=== PATIENT | male | born 1945 | race Caucasian/White ===

== ENCOUNTER 2024-03-09 06:32 | Emergency (ER) | payer OTHER, SELFPAY ==
[2024-03-09] VITALS (7 sets, daily range): BP systolic 116–145; BP diastolic 69–83
[2024-03-09 07:26] LABS: % Basophils 0.4 % (0-2); % Eosinophils 0.1 % (0-6); % Immature Granulocytes 0.6 % (0-0.5); % Monocytes 7.2 % (1.7-9.3); % Neutrophils 86.7 % (42.2-75.2); Absolute Basophils 0.1 10^3/uL (0-0.2); Absolute Immature Granulocytes 0.1 10^3/uL (0-0.05); Absolute Lymphocytes 0.9 10^3/uL (1.2-3.4); Absolute Monocytes 1.2 10^3/uL (0.1-0.6); Absolute Neutrophils 14.8 10^3/uL (1.4-6.5); Hematocrit 43.5 % (39.0-52.0); Hemoglobin 14.8 g/dL (13.0-18.0); Mean Corpuscular Hgb 27.7 pg (27.0-31.0); Mean Corpuscular Volume 81.3 fL (80.0-94.0); Mean Platelet Volume 11.9 fL (7.4-10.4); Nucleated Red Blood Cells % 0 % (-); Platelet Count 189 10^3/uL (130-400); Red Blood Cell Count 5.35 10^6/uL (4.70-6.10); Red Cell Dist. Width 13.3 % (11.5-14.5)
[2024-03-09 07:27] LABS: INR 1.77; PT 20.4 Sec (11.4-14.6)
[2024-03-09 07:38] LABS: ALT (SGPT) 18 U/L (0-50); AST (SGOT) 25 U/L (17-59); Albumin 4.4 g/dl (3.5-5.0); Alkaline Phosphatase 125 U/L (38-126); Blood Urea Nitrogen 20 mg/dl (9-20); Calcium 9.8 mg/dl (8.4-10.2); Carbon Dioxide 23 mmol/L (22-30); Chloride 103 mmol/L (98-107); Creatine Phosphokinase 105 U/L (55-170); Glucose 138 mg/dl (70-99); Potassium 3.7 mmol/L (3.5-5.1); Sodium 141 mmol/L (135-145); Total Bilirubin 2.2 mg/dl (0.2-1.3); eGFR > 60.00
--- NOTE | 2024-03-09 07:57 | ED.GENMED ---
History of Present Illness
General
Chief Complaint: Abdominal Symptoms
Source: patient
Exam Limitations: none
Time Seen by Provider: 03/09/24 07:02
Nursing documentation reviewed up to this point in time: agreed with
History of Present Illness
History of Present Illness:
78-year-old male with Fran history of hypertension, COPD anxiety depression presenting to the emergency department today after an episode this morning where he had 2 episodes of diarrhea a few hours prior to arrival department. He felt very weak
and slowly lowered himself to the ground. He had difficulty standing up. He was unable to stand up at home called EMS and was brought to the ER. Denies chest pain short numbness weakness nausea vomiting. Otherwise has no specific complaints at
this time.
Past History
Past History
ED Past Medical History: COPD, CVA, GERD, HTN, Psychiatric and Other (Diverticulitis, BPH, chronic diarrhea w/ incont)
ED Past Surgical History: Bowel resection, Cholecystectomy, Urological (Prostate) and Other (Hernia repair)
Social History
Tobacco: Former smoker
Alcohol: Occasional
Drug: None
Personal:
Living: with family
Family History
Family History: Negative Diabetes, Hypertension, Early CAD, Asthma or Cancer
Review of Systems
Review of Systems
Allergies reviewed?: Yes
All Other Systems: ROS reviewed and negative except as documented in HPI and ROS
Phy Exam
Physical Exam
Physical Exam:
GENERAL: Alert , in no apparent distress
EYE: pupils equal and reactive
NECK: Supple, no significant adenopathy.
ENT: o/p clr, mmm.
CARDIAC: Regular rate and rhythm .
LUNGS: Clear breath sounds bilaterally, no acute respiratory distress, no wheezes/rales/rhonchi
ABDOMEN: Soft, without focal tenderness, no r/g, no cvat
NEUROLOGICAL: Alert and oriented, no focal neuro deficits
SKIN: Warm and dry, skin intact.
MUSCULOSKELETAL: No edema, well perfused.
PSYCH: Normal and appropriate interaction.
Course
Orders/Labs/Results
Orders:
Orders
03/09/24 06:59
CPK [Creatine Phosphokinase] Urgent
Complete Blood Count/With Diff Urgent
Comprehensive Metabolic Panel Urgent
03/09/24 07:06
INR [Prothrombin Time] Urgent
03/09/24 07:22
EKG [Electrocardiogram (*1)] Urgent
Reason for Study: Fatigue / Weakness
EKG- Treatment ONCE
Urinalysis Reflex To Culture Urgent
03/09/24 07:53
Troponin I Urgent
03/09/24 07:58
0.9% Sodium Chloride 500 ml [Nss] 500 ml IV BOLUS
Abnormal Lab Results
03/09/24 03/09/24
06:59 07:06
WBC 17.0 H 10^3/uL
(4.8-10.8)
MPV 11.9 H fL
(7.4-10.4)
Abs Immat Gran (auto) 0.1 H 10^3/uL
(0-0.05)
Absolute Neuts (auto) 14.8 H 10^3/uL
(1.4-6.5)
Absolute Lymphs (auto) 0.9 L 10^3/uL
(1.2-3.4)
Absolute Monos (auto) 1.2 H 10^3/uL
(0.1-0.6)
Immature Gran % 0.6 H %
(0-0.5)
Neutrophils % 86.7 H %
(42.2-75.2)
Lymphocytes % 5.0 L %
(20.5-51.1)
PT 20.4 H Sec
(11.4-14.6)
Glucose 138 H mg/dl
(70-99)
Total Bilirubin 2.2 H mg/dl
(0.2-1.3)
03/09/24 06:59
03/09/24 06:59
Vital Signs
Initial and Last Documented VS:
Initial Vital Signs
Temp Pulse Resp BP Pulse Ox
97.8 F 112 24 131/75 95
03/09/24 06:49 03/09/24 06:49 03/09/24 06:49 03/09/24 06:49 03/09/24 06:49
Last Documented Vital Signs
Temp Pulse Resp BP Pulse Ox
97.8 F 97 16 116/72 95
03/09/24 06:49 03/09/24 11:00 03/09/24 11:00 03/09/24 11:00 03/09/24 11:00
MDM/Problems Addressed
MDM/Problems Addressed:
78-year-old male presenting to the emergency department today after having 2 episodes of diarrhea early this morning felt very weak when standing up lowered himself to the ground and was unable to stand up for 2 hours and was brought in by EMS
thereafter. Upon arrival mildly tachycardic but improving without specific treatment. Patient is white count of 17. Creatinine kinase is normal. Patient generally well-appearing throughout ER stay able to ambulate in no distress in good spirits
stable for outpatient management advised for close outpatient follow-up. Return precautions given.
*Critical Care Note
Total Time (30-74mins, 75-104mins- exclusive of procedures): Not Applicable
ED Attending Note
-
Portions of this chart may have been created with voice recognition software.� Occasional wrong word or��sound alike� substitutions may have occurred due to the inherent limitations of voice recognition software.
Discharge Plan
Departure
Patient Disposition: Home (Routine Discharge)
Date of Disposition: 03/09/24
Time of Disposition: 12:16
Patient with high blood pressure during this ER visit?: No
Condition: Good
Covid-19: Not Applicable
Discharge Problem:
Diarrhea, Fall
Instructions: Diarrhea in teens and adults
Prescriptions:
No Action
simvastatin 40 MG tablet
40 mg PO HS
warfarin [Jantoven] 5 MG tablet
5 mg PO MOWEFR
diazepam 10 MG tablet
10 mg PO DAILY PRN (Reason: ANXIETY)
cholecalciferol (vitamin D3) [Vitamin D3] 2,000 UNIT capsule
2,000 unit PO DAILY
finasteride 5 MG tablet
5 mg PO DAILY
albuterol sulfate 1 PUFF HFA aerosol inhaler
2 puff inhalation R Q4HPRN PRN (Reason: shortness of breath or wheeze) Qty: 1 0RF
lisinopril 20 MG tablet
20 mg PO BID Qty: 60 0RF
metoprolol succinate 12.5 MG tablet extended release 24 hr
12.5 mg PO BID 30 Days Qty: 60 0RF
colestipol [Colestid] 1 GM tablet
1 gm PO BID Qty: 30 0RF
warfarin 5 mg Tablet
2.5 mg PO SUTUTHSA
Trelegy Ellipta
1 puff inhalation DAILY
Referrals:
Humberto Avila MD [Family Provider] -
Activity Restrictions/Additional Instructions:
You came to the emergency department today with concerns after a fall and diarrhea today. Here you had a reassuring assessment. Please follow closely with your primary care doctor within 1 week. Return to the emergency department any worsening,
new or concerning symptoms.
Interventions
Interventions:
*Risk Screen - Suicide Last Done: 03/09/24 06:49
*General Assessment Last Done: 03/09/24 06:49
*Neglect/Abuse Screening Last Done: 03/09/24 06:49
ED- Fall Risk Assessment Last Done: 03/09/24 06:49
*ED COVID-19 Vaccine History Last Done: 03/09/24 06:49
PS-Glodkl-Rueywlwees Assessment Last Done: 03/09/24 06:55
Discharge Date and Time
Print Language: MONEGASQUE
[2024-03-09] MEDS: NSS 500 IV (08:31)
== END 2024-03-09 12:45 | disposition home or self-care (01) ==
LOC: EMR 06:32
PROVIDERS: Physician Assistant; EMERGENCY PHYSICIAN Student in an Organized Health Care Education/Training Program; FAMILY PHYSICIAN Family Medicine
DX: R19.7 Diarrhea, unspecified (principal); W19.XXXA Unspecified fall, initial encounter; I10 Essential (primary) hypertension; J44.9 Chronic obstructive pulmonary disease, unspecified; F41.8 Other specified anxiety disorders; K21.9 Gastro-esophageal reflux disease without esophagitis; N40.0 Benign prostatic hyperplasia without lower urinary tract symptoms; Z82.49 Family history of ischemic heart disease and other diseases of the circulatory system; Z86.73 Personal history of transient ischemic attack (TIA), and cerebral infarction without residual deficits; Z87.891 Personal history of nicotine dependence; Z90.49 Acquired absence of other specified parts of digestive tract
CPT/HCPCS: 99283; 80053; 82550; 84484; 85025; 85610; 93005

== ENCOUNTER 2024-10-06 14:42 | Observation (INO) | payer OTHER, SELFPAY ==
[2024-10-06] VITALS (10 sets, daily range): BP systolic 136–189; BP diastolic 76–109; BMI 27.6
--- NOTE | 2024-10-06 10:54 | ED.GENMED ---
History of Present Illness
General
Chief Complaint: Blood Pressure Problem
Source: patient
Exam Limitations: none
Time Seen by Provider: 10/06/24 10:06
History of Present Illness
History of Present Illness:
Patient describing some mild dizziness last evening when he went to bed. Worse at 4 AM. Was bouncing off the [place]. Not describing syncope or near syncope. Symptoms have improved but persisted. No headache no other neurologic symptoms no
diaphoresis chest pain or shortness of breath
Past History
Past History
ED Past Medical History: COPD, CVA, GERD, HTN, Psychiatric and Other (Diverticulitis, BPH, chronic diarrhea w/ incont)
ED Past Surgical History: Bowel resection, Cholecystectomy, Urological (Prostate) and Other (Hernia repair)
Social History
Tobacco: Former smoker
Alcohol: Occasional
Drug: None
Personal:
Living: with family
Family History
Family History: Negative Diabetes, Hypertension, Early CAD, Asthma or Cancer
Review of Systems
Review of Systems
All Other Systems: Not applicable
Constitutional: Denies fever
Respiratory: Reports no symptoms
Cardiac: Reports no symptoms
Phy Exam
Physical Exam
Physical Exam:
GENERAL: Alert and oriented in no apparent distress
EYE: Orbits normal.
NECK: Supple, no carotid bruit.
ENT: Pharynx without erythema
CARDIAC: Regular rate and rhythm without any obvious murmurs.
LUNGS: Clear breath sounds,normal
ABDOMEN: Soft, without focal tenderness or distention
NEUROLOGICAL: Alert and oriented , grossly non-focal. Cranial nerves II through XII intact. [id number] normal. Good upper and lower extremity strength
SKIN: Warm and dry, no rash or lesion, no discoloration, skin intact.
MUSCULOSKELETAL: No edema,no deformity.Good color
PSYCH: Normal and appropriate interaction.
Course
Orders/Labs/Results
Orders:
Orders
10/06/24 09:29
Electrocardiogram (*1) Urgent
Reason for Study: Hypertension, Benign
EKG- Treatment ONCE
10/06/24 10:44
CT Head W/o Iv Contrast Urgent
Comment:
Reason For Exam: Disequilibrium/anticoagulated
Cardiac Monitoring- Treatment ONCE
IV Insert/Care/Rem.- Treatment PRN
Pulse Ox/cont/shift [RESP] Stat
Quantity: 1
10/06/24 10:45
CXR2 [CR Chest - 2 Views ] Urgent
Comment:
Reason For Exam: cough
10/06/24 10:54
Basic Metabolic Panel Urgent
COVID-19 Antigen Urgent
Source: Nasal Swab
Complete Blood Count/With Diff Urgent
PTT Urgent
Prothrombin Time Urgent
Influenza A+B Rapid Molecular Urgent
JENNIFER Source: Nasal Swab
Specimen Description:
Abnormal Lab Results
10/06/24
10:54
WBC 11.3 H 10^3/uL
(4.8-10.8)
MPV 10.8 H fL
(7.4-10.4)
Absolute Neuts (auto) 9.8 H 10^3/uL
(1.4-6.5)
Absolute Lymphs (auto) 0.7 L 10^3/uL
(1.2-3.4)
Absolute Monos (auto) 0.7 H 10^3/uL
(0.1-0.6)
Neutrophils % 86.1 H %
(42.2-75.2)
Lymphocytes % 6.4 L %
(20.5-51.1)
PT 26.6 H Sec
(11.4-14.6)
APTT 43.0 H Sec
(23.4-35.0)
Glucose 119 H mg/dl
(70-99)
10/06/24 10:54
10/06/24 10:54
Vital Signs
Initial and Last Documented VS:
Initial Vital Signs
Temp Pulse Resp BP Pulse Ox
98.0 F 81 16 163/83 98
10/06/24 09:31 10/06/24 09:31 10/06/24 09:31 10/06/24 09:31 10/06/24 09:31
Last Documented Vital Signs
Temp Pulse Resp BP Pulse Ox
98.0 F 78 24 172/79 92
10/06/24 09:31 10/06/24 12:07 10/06/24 12:07 10/06/24 12:07 10/06/24 12:07
MDM/Problems Addressed
Differential Diagnosis Includes:
Patient describing disequilibrium. Started last evening. Worse at 4 AM. Not truly vertigo. I do not think he is probably describing syncope or near syncope. Workup in progress. Warrants inpatient management.
*Radiology
Radiology exam reviewed: radiology read reviewed (No acute findings. Multiple old cerebellar infarcts calcified plaque vertebral and basilar arteries)
*Pulse Oximetry
Patient hypoxic: no
*EKG
Interpreted by ED Provider?: Yes
Interpretation: abnormal
Comparison EKG: changes noted
Heart Rate: 79
Rate: normal
Rhythm: sinus and PVC's
[place]: normal axis
Interval: normal interval
QRS Pattern: left bundle branch block
Ischemia: non-specific ST changes
Data Reviewed
Review of Other/Old Records Reveals: Labs, Records and Testing
Update Note
Update Note:
Patient with severe disequilibrium. Not describing near syncope or syncope. Neurologically stable but would have to consider central etiology. Will admit for further workup
ED Attending Note
-
Portions of this chart may have been created with voice recognition software.� Occasional wrong word or��sound alike� substitutions may have occurred due to the inherent limitations of voice recognition software.
Discharge Plan
Departure
Patient Disposition: Admit
Date of Disposition: 10/06/24
Time of Disposition: 13:24
Presentation/result/management discussed w/ accepting MD/DO: Hospitalist
Discharge Problem:
Acute disequilibrium, Possible central etiology
Prescriptions:
No Action
simvastatin 40 MG tablet
40 mg PO HS
warfarin [Jantoven] 5 MG tablet
5 mg PO MOWEFR
diazepam 10 MG tablet
10 mg PO DAILY PRN (Reason: ANXIETY)
cholecalciferol (vitamin D3) [Vitamin D3] 2,000 UNIT capsule
2,000 unit PO DAILY
finasteride 5 MG tablet
5 mg PO DAILY
albuterol sulfate 1 PUFF HFA aerosol inhaler
2 puff inhalation R Q4HPRN PRN (Reason: shortness of breath or wheeze) Qty: 1 0RF
lisinopril 20 MG tablet
20 mg PO BID Qty: 60 0RF
metoprolol succinate 12.5 MG tablet extended release 24 hr
12.5 mg PO BID 30 Days Qty: 60 0RF
colestipol [Colestid] 1 GM tablet
1 gm PO BID Qty: 30 0RF
warfarin 5 mg Tablet
2.5 mg PO SUTUTHSA
Trelegy Ellipta
1 puff inhalation DAILY
Referrals:
Tyson Fonseca MD [Family Provider] -
Interventions
Interventions:
*Risk Screen - Suicide Last Done: 10/06/24 09:31
*General Assessment Last Done: 10/06/24 10:56
*Neglect/Abuse Screening Last Done: 10/06/24 09:31
*ED- Fall Risk Assessment Last Done: 10/06/24 10:56
*ED COVID-19 Vaccine History Last Done: 10/06/24 10:56
ED- Cardiac Assessment Last Done: 10/06/24 10:58
ED- Neurological Assessment Last Done: 10/06/24 10:58
ED- Pulmonary Assessment Last Done: 10/06/24 10:58
Discharge Date and Time
Print Language: UPPER SORBIAN
[2024-10-06 11:06] LABS: % Basophils 0.6 % (0-2); % Eosinophils 0.2 % (0-6); % Immature Granulocytes 0.3 % (0-0.5); % Lymphocytes 6.4 % (20.5-51.1); % Monocytes 6.4 % (1.7-9.3); % Neutrophils 86.1 % (42.2-75.2); Absolute Basophils 0.1 10^3/uL (0-0.2); Absolute Lymphocytes 0.7 10^3/uL (1.2-3.4); Absolute Monocytes 0.7 10^3/uL (0.1-0.6); Absolute Neutrophils 9.8 10^3/uL (1.4-6.5); Hematocrit 42.9 % (39.0-52.0); Hemoglobin 14.6 g/dL (13.0-18.0); Mean Corpuscular Hgb 28.2 pg (27.0-31.0); Mean Platelet Volume 10.8 fL (7.4-10.4); Nucleated Red Blood Cells % 0 % (-); Platelet Count 144 10^3/uL (130-400); Red Blood Cell Count 5.17 10^6/uL (4.70-6.10); Red Cell Dist. Width 14.5 % (11.5-14.5); White Blood Cell Count 11.3 10^3/uL (4.8-10.8)
[2024-10-06 11:21] LABS: PT 26.6 Sec (11.4-14.6)
[2024-10-06 11:31] LABS: Blood Urea Nitrogen 12 mg/dl (9-20); Calcium 9.3 mg/dl (8.4-10.2); Carbon Dioxide 26 mmol/L (22-30); Chloride 99 mmol/L (98-107); Estimated Creatinine Clearance 86 ml/min; Glucose 119 mg/dl (70-99); Potassium 4.1 mmol/L (3.5-5.1); Sodium 136 mmol/L (135-145); eGFR > 60.00
[2024-10-06 11:58] LABS: COVID-19 Antigen Negative (Negative)
--- NOTE | 2024-10-06 12:08 | EDRN ---
Patient back from xray, was incontinent to urine and stool, patient cleaned up, new linen and gown provided as well as a brief, patient states he could urinate now, provided urinal, patient was able to stand to urinate, patient resting comfortably
at this time, call chaudhry in reach.
--- NOTE | 2024-10-06 13:58 | HPS.HSE ---
Addendum entered and electronically signed by Kelley Guajardo MD 10/06/24 15:21:
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 Patient took this morning - scheduled next dose for tomorrow afternoon.
Original Note:
Family Physician
-
Family Physician: Tyson Fonseca
Chief Complaint
-
dizziness
History of Present Illness
Mr. Jose Blackwood is a 79 yo man with hx posterior circulation CVA 2011, remote tobacco and alcohol use, COPD, essential HTN, Varner's esophagus, diverticulitis s/p hemicolectomy presents to the ER with difficulty walking this morning.
Patient states he was in his usual state of health last night. He went to sleep after dinner. He woke up at 4:30 AM and felt like he couldn't walk straight and was walking into [place] prompting him to call 911. He denies headache. No
fevers/chills. He was able to speak during this episode. Denies significant weakness. No nausea/vomiting/diarrhea. No chest pain or shortness of breath (intermittent episodes in association with COPD). No LE swelling.
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
Medical History
Past Medical History
Past Medical History: Reports Other ( CVA 2012, remote tobacco and alcohol use, COPD, essential HTN, Varner's esophagus, diverticulitis s/p hemicolectomy)
Past Surgical History: Reports Bowel Resection
Social History
Tobacco: Former Smoker
Alcohol: Former
Family History
Family History: Not pertinent
Allergies / Home Medications
Allergies reflects when Allergies were last updated in [facility].
Home Medications with original date entered in [facility]
Allergy/Medication List:
Allergies
Allergy/AdvReac Type Severity Reaction Status Date / Time
garlic Allergy STOMACH Verified 10/06/24 09:33
UPSET,TASTES
IT FOR 6
DAYS
Home Medications
cholecalciferol (vitamin D3) 50 mcg (2,000 unit) capsule (Vitamin D3) 2,000 unit PO DAILY Supplement 10/31/13
warfarin 5 mg tablet (Jantoven) 5 mg PO SUMOWEFR Blood clot prevention/tx 10/31/13
finasteride 5 mg tablet 5 mg PO DAILY Urinary issue 04/12/15
albuterol sulfate 90 mcg/actuation aerosol inhaler 2 puff inhalation R Q4HPRN PRN shortness of breath or wheeze ##1 04/16/15
colestipol 1 gram tablet (Colestid) 1 gm PO BID #30 tabs 12/26/21
warfarin 5 mg tablet 2.5 mg PO TUTHSA 02/17/22
acetaminophen 325 mg tablet (Tylenol) 650 mg PO HS 10/06/24
atorvastatin 80 mg tablet (Lipitor) 80 mg PO DAILY 10/06/24
calcitriol 0.25 mcg capsule 0.25 mcg PO DAILY 10/06/24
fluticasone fur. 200 mcg-umeclid 62.5 mcg-vilant 25 mcg inhalat.powder (Trelegy Ellipta) 1 inh inhalation R DAILY 10/06/24
lisinopril 20 mg tablet 40 mg PO DAILY 10/06/24
loperamide 2 mg capsule 4 mg PO HS 10/06/24
metoprolol succinate 25 mg tablet,extended release 24 hr (Toprol XL) 25 mg PO DAILY 10/06/24
pantoprazole 20 mg tablet,delayed release (Protonix) 20 mg PO DAILY 10/06/24
Review of Systems
-
History Source: Patient
A 12 point ROS was completed and negative except as noted: Yes
Physical Exam
Vital Signs
Vital Signs
Temp Pulse Resp BP Pulse Ox
98.0 F 78 24 172/79 92
10/06/24 09:31 10/06/24 12:07 10/06/24 12:07 10/06/24 12:07 10/06/24 12:07
Physical Exam
General: No Apparent Distress and Conversant
HEENT: PERRLA and Other (no nystagmus)
Respiratory: Clear; No Wheezes
Cardiac: S1/S2 and Regular Rhythm
Musculoskeletal: No Edema
Skin: Warm and Dry; No Rash
Neuro: AO x 3 and Other (no nystagmus, no facial asymmetry, 5/5 strength upper and lower extremities, slight pronator drift on left and more difficulty with FNF )
Psych: Calm
Laboratory Results
-
10/06/24 10:54
10/06/24 10:54
Laboratory Results
PT 26.6 Sec (11.4-14.6) H 10/06/24 10:54
INR 2.40 10/06/24 10:54
APTT 43.0 Sec (23.4-35.0) H 10/06/24 10:54
Data Reviewed
-
Diagnostic Radiology: Report Reviewed by me
Lab Data: Labs Reviewed by me
Impression/Plan
-
Mr. Jose Blackwood is a 79 yo man with hx CVA 2011, remote tobacco and alcohol use, COPD, essential HTN, Varner's esophagus, diverticulitis s/p hemicolectomy presents to the ER with difficulty walking this AM.
Triage VS: T 98, P 81, RR 16, BP 163/83, SpO2 98%
LABS: WBC 11.3, Hg 14.6, Na 136, K+ 4.1, CO2 26, BUN 12, Cr 0.7, Glucose 119
[address]
IMPRESSION:
1. No acute intracranial abnormalities appreciated.
2. Mild atrophy and mild chronic small vessel change.
3. Multiple old cerebellar infarcts on each side. Atherosclerotic change within both vertebral arteries and the basilar artery. 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 Consider MRI/MRA of the brain as clinically appropriate.
CXR
IMPRESSION:
1. No acute pulmonary abnormality appreciated.
2. Mild hyperinflation, with coarsening of the interstitial compartment, suggestive of COPD.
Dysequilibrium concern for acute CVA versus recrudescence
Hx Posterior CVA on daily Coumadin
-admit to observation, telemetry
-discussing plan with Dr. Langford; holding coumadin for now (patient takes in AM)
-MRI/MRA, will follow up Dr. Langford's recs on imaging
-PT/OT/ST
-INDEPENDENT MARKETING CONSULTANT statin
COPD
-INDEPENDENT MARKETING CONSULTANT inhalers
Essential HTN - INDEPENDENT MARKETING CONSULTANT Lisinpril, Metoprolol XL
Varner's Esophagus - INDEPENDENT MARKETING CONSULTANT PPI
Diverticulitis s/p hemicolectomy
DVT PPx SCD
FULL CODE
--- NOTE | 2024-10-06 14:25 | EDRN ---
Patient watching tv, got him some Vaseline for his lips, otherwise patient resting comfortably, call chaudhry in reach.
--- NOTE | 2024-10-06 15:12 | CON.NEURO ---
Neuro Assessment/Plan
Assessment
Head CT imgs reviewed, bilateral vertebral and basilar calcifications
79 year old man with dizziness - likely TIA
spoke with patient about options including discharge home, or overnight observation which he is agreeable to
no need for MRI as it will not change the rx
Plan
continue Coumadin
continue Lipitor 80
as he is not actively symptomatic from VBI, I don't believe there is a role for endovascular intervention
Consultation
Order
Date of Consultation: 10/06/24
Requesting Provider: Kelley Guajardo
Reason for Consult: dizziness
Subjective/Objective
Subjective Data
Date of Service: October 06, 2024
from h&p:
Mr. Jose Blackwood is a 79 yo man with hx posterior circulation CVA 2011, remote tobacco and alcohol use, COPD, essential HTN, Varner's esophagus, diverticulitis s/p hemicolectomy presents to the ER with difficulty walking this morning.
Patient states he was in his usual state of health last night. He went to sleep after dinner. He woke up at 4:30 AM and felt like he couldn't walk straight and was walking into [place] prompting him to call 911. He denies headache. No
fevers/chills. He was able to speak during this episode. Denies significant weakness. No nausea/vomiting/diarrhea. No chest pain or shortness of breath (intermittent episodes in association with COPD). No LE swelling.
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
When I saw him this afternoon, the dizziness is resolved. he is not dizzy when turning his head to either side.
Objective Data
Vital Signs
Temp Pulse Resp BP Pulse Ox
36.7 C 77 21 136/98 93
10/06/24 09:31 10/06/24 14:25 10/06/24 14:25 10/06/24 14:25 10/06/24 14:25
Lab Results
10/06/24 10:54
10/06/24 10:54
PT 26.6 Sec (11.4-14.6) H 10/06/24 10:54
INR 2.40 10/06/24 10:54
APTT 43.0 Sec (23.4-35.0) H 10/06/24 10:54
Sodium 136 mmol/L (135-145) 10/06/24 10:54
Potassium 4.1 mmol/L (3.5-5.1) 10/06/24 10:54
BUN 12 mg/dl (9-20) 10/06/24 10:54
Glucose 119 mg/dl (70-99) H 10/06/24 10:54
Calcium 9.3 mg/dl (8.4-10.2) 10/06/24 10:54
Patient Allergies
garlic Allergy (Verified 10/06/24 09:33)
STOMACH UPSET,TASTES IT FOR 6 DAYS
Physical Exam
-
AAOx3, speech clear, language intact
VFF, EOMI, no nystagmus, face symmetric
full strength b/l UE/LE
sensation intact to touch
Medications
-
Home Medications
�Medication �Instructions �Recorded
cholecalciferol (vitamin D3) 50 2,000 unit PO DAILY Supplement 10/31/13
mcg (2,000 unit) capsule (Vitamin
D3)
warfarin 5 mg tablet (Jantoven) 5 mg PO SUMOWEFR Blood clot 10/31/13
prevention/tx
finasteride 5 mg tablet 5 mg PO DAILY Urinary issue 04/12/15
albuterol sulfate 90 mcg/actuation 2 puff inhalation R Q4HPRN PRN 04/16/15
aerosol inhaler shortness of breath or wheeze ##1
colestipol 1 gram tablet (Colestid) 1 gm PO BID #30 tabs 12/26/21
warfarin 5 mg tablet 2.5 mg PO TUTHSA 02/17/22
acetaminophen 325 mg tablet 650 mg PO HS 10/06/24
(Tylenol)
atorvastatin 80 mg tablet (Lipitor) 80 mg PO DAILY 10/06/24
calcitriol 0.25 mcg capsule 0.25 mcg PO DAILY 10/06/24
fluticasone fur. 200 mcg-umeclid 1 inh inhalation R DAILY 10/06/24
62.5 mcg-vilant 25 mcg
inhalat.powder (Trelegy Ellipta)
lisinopril 20 mg tablet 40 mg PO DAILY 10/06/24
loperamide 2 mg capsule 4 mg PO HS 10/06/24
metoprolol succinate 25 mg 25 mg PO DAILY 10/06/24
tablet,extended release 24 hr
(Toprol XL)
pantoprazole 20 mg tablet,delayed 20 mg PO DAILY 10/06/24
release (Protonix)
[2024-10-06] MEDS: TYLENOL 650 MG PO (21:39)
[2024-10-07 04:23] VITALS: BP 164/96
[2024-10-07 07:00] VITALS: BP 157/97
[2024-10-07 07:22] LABS: INR 2.15; PT 24.5 Sec (11.4-14.6)
[2024-10-07 07:25] LABS: Hematocrit 43.6 % (39.0-52.0); Hemoglobin 14.8 g/dL (13.0-18.0); Mean Corp Hgb Conc. 33.9 g/dL (33.0-37.0); Mean Corpuscular Hgb 28.2 pg (27.0-31.0); Mean Platelet Volume 11.1 fL (7.4-10.4); Platelet Count 132 10^3/uL (130-400); Red Blood Cell Count 5.25 10^6/uL (4.70-6.10); Red Cell Dist. Width 14.6 % (11.5-14.5); White Blood Cell Count 8.4 10^3/uL (4.8-10.8)
[2024-10-07] MEDS: TOPROL XL 25 MG PO (07:34)
[2024-10-07] MEDS: PROTONIX 20 MG PO (07:34)
[2024-10-07] MEDS: VITAMIN D3 (cholecalciferol) 50 MCG PO (07:35)
[2024-10-07] MEDS: ZESTRIL 40 MG PO (07:35)
[2024-10-07] MEDS: PROSCAR 5 MG PO (07:35)
[2024-10-07] MEDS: LIPITOR 80 MG PO (07:35)
[2024-10-07] MEDS: ROCALTROL 0.25 MCG PO (07:35)
[2024-10-07 07:37] LABS: Blood Urea Nitrogen 15 mg/dl (9-20); Calcium 9.4 mg/dl (8.4-10.2); Carbon Dioxide 32 mmol/L (22-30); Chloride 100 mmol/L (98-107); Estimated Creatinine Clearance 67 ml/min; Glucose 109 mg/dl (70-99); HDL Cholesterol 49 mg/dl; LDL Cholesterol, Calculated 58 mg/dl; Sodium 141 mmol/L (135-145); Total Cholesterol 136 mg/dl (50-199); Triglyceride 146 mg/dl (10-149); Very Low Density Lipoprotein 29 mg/dl (0-30); eGFR > 60.00
[2024-10-07] MEDS: SPIRIVA RESPIMAT 2.5 MCG 2 PUFF INH (07:45)
[2024-10-07] MEDS: SYMBICORT 160/4.5 MCG INHALER 2 PUFF INH (07:45)
[2024-10-07 10:18] LABS: Glycohemoglobin (HgbA1c) 5.7 % (4.0-5.6)
[2024-10-07 10:49] VITALS: BP 175/87; O2SAT 94
[2024-10-07 11:00] VITALS: BP 175/87
[2024-10-07 11:04] VITALS: BP 175/87; PULSE 90; O2SAT 93
--- NOTE | 2024-10-07 11:44 | W.PN.HOSP.TC ---
Today's Communication/Plan
-
dc home
cont coumadin
Assessment / Plan
Assessment / Plan
Dysequilibrium concern for likely TIA
Hx Posterior CVA on daily Coumadin
-admit to observation, telemetry
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 INR therapeutic on admission. INR today at 2.15 there[place]utic.
-PT/OT-home health
-d/w with Dr. Lake CLAUDIO no plan for any further testing. Pt can be dc. Pt verbalized understanding.
-COLLECTIONS PROFESSIONAL statin
COPD
-COLLECTIONS PROFESSIONAL inhalers
Essential HTN - COLLECTIONS PROFESSIONAL Lisinpril, Metoprolol XL
Varner's Esophagus - COLLECTIONS PROFESSIONAL PPI
Diverticulitis s/p hemicolectomy
DVT PPx SCD
FULL CODE
PT/OT -home vn
More than 30 minutes spent in discharge including
Final examination of the patient
Summarizing hospital stay
Instructions for continuing care to all relevant caregivers
Preparation of discharge records, prescriptions, and referral forms
Total time spent (in minutes): 50
Anticipated Discharge: Today
Subjective/Interval History
-
Date of Service: October 07, 2024
did not like breakfast
denies any lightheadedness or dizziness
Objective Data
-
Labs:
Laboratory Results
10/07/24
06:20
WBC 8.4
Hgb 14.8
Hct 43.6
Plt Count 132
PT 24.5 H
INR 2.15
Sodium 141
Potassium 4.0
Chloride 100
Carbon Dioxide 32 H
BUN 15
Creatinine 0.9
Glucose 109 H
Calcium 9.4
Vital Signs:
Vital Signs
Temp Pulse Resp BP Pulse Ox
98.6 F 101 20 157/97 94
10/07/24 07:00 10/07/24 07:52 10/07/24 07:52 10/07/24 07:34 10/07/24 07:52
I&O
10/06/24 10/07/24 10/08/24
06:59 06:59 06:59
Intake Total 120 / 120
Balance 120 / 120
Physical Exam
-
General: Well Developed and No Apparent Distress
HEENT: Normocephalic, Atraumatic and Moist Mucous Membranes
Respiratory: Clear to Auscultation
Cardiac: Regular Rhythm and S1/S2; Negative Murmur, Rub or Gallop
GI: Soft, Nontender, Nondistended and Normal Bowel Sounds; Negative Organomegaly
Rectal: Deferred by Provider
Musculoskeletal: No Clubbing, No Cyanosis and No Edema
Skin: Negative Rash
Neuro: Awake, No Motor Deficits and Nonfocal/Grossly Intact
Psych: Calm
--- NOTE | 2024-10-07 11:52 | W.DCSUMMARY ---
Discharge Summary
Discharge Data
Date of Admission: 10/06/24
Date of Discharge: 10/07/24
-
Pending Results: No
Hospital Course
79-year-old male past medical history of COPD, hypertension, Varner esophagus, history of CVA, chronic coagulopathy with Coumadin who is presenting from home with with difficulty with walking. Patient stated he had trouble walking at home and
called 911. Upon arrival to the hospital patient's symptoms resolved. Patient was eval by neurology. CT head with negative acute pathology. Multiple old cerebellar infarcts were noted. Per neurology no further need for MRI as it will not change
management. Patient INR was therapeutic. Per neurology okay to continue with Coumadin. Patient was eval by physical and Occupational Therapy with plan for outpatient therapy. Patient was back to baseline neurological status without any deficit.
Patient was tolerating diet without any difficulty. Patient be discharged home with outpatient follow-up.
Discharge Plan
-
Patient Disposition: Home with Home Care
Discharge Diagnosis/Procedures: Dysequilibrium likely 2/2 TIA
Condition: Fair
Diet: Low Cholesterol
Activity: With assistance and As tolerated
Driving Restrictions: As prior to admission
Other Services: [facility]N
Referrals:
Tyson Fonseca MD [Family Provider] - in less than 1 week
Prescriptions:
Continued
warfarin [Jantoven] 5 MG tablet
5 mg PO SUMOWEFR
cholecalciferol (vitamin D3) [Vitamin D3] 2,000 UNIT capsule
2,000 unit PO DAILY
finasteride 5 MG tablet
5 mg PO DAILY
albuterol sulfate 1 PUFF HFA aerosol inhaler
2 puff inhalation R Q4HPRN PRN (Reason: shortness of breath or wheeze) Qty: 1 0RF
colestipol [Colestid] 1 GM tablet
1 gm PO BID Qty: 30 0RF
warfarin 5 mg Tablet
2.5 mg PO TUTHSA
atorvastatin [Lipitor] 80 mg Tablet
80 mg PO DAILY
acetaminophen [Tylenol] 325 mg Tablet
650 mg PO HS
loperamide 2 mg Capsule
4 mg PO HS
pantoprazole [Protonix] 20 mg Tablet,Delayed Release (Dr/Ec)
20 mg PO DAILY
metoprolol succinate [Toprol XL] 25 mg Tablet Extended Release 24 Hr
25 mg PO DAILY
calcitriol 0.25 mcg Capsule
0.25 mcg PO DAILY
Trelegy Ellipta 200-62.5-25 mcg Blister With Device
1 inh INHALATION R DAILY
lisinopril 20 MG tablet
40 mg PO DAILY
Discharge Orders:
Discharge Patient (As Directed); Ordered 10/07/24
Ordered By: Royce Amato
Discharge Date and Time
Discharge Date/Time: 10/07/24 13:22
Print Language: CZECH
--- NOTE | 2024-10-07 12:05 | CM ---
Addendum entered by Adry Godwin 10/07/24 13:01:
update, reviewed with liaison [facility], patient is not considered homebound, is working/driving. Script provided for outpatient PT/OT, update to Hospitalist.
Original Note:
CM reviewed chart, patient seen bedside, initial assessment completed. Patient resides with his significant other in a two story home, three steps to enter. Patient denies use of DME, reports he has had [facility] in the past, denies SNF. Patient confirms
PCP Tyson Fonseca, pharmacy [facility]. DASILVA form reviewed verbally, provided with copy, placed in chart. CM reviewed PT/OT recommendations of VN, patient agreeable to referral to VN, TT to liaison with referral. Patient reports his friend
will provide transport home. Call to patients significant other to discuss PT/OT recommendations. Per significant other, patient is easily distracted and repeats the same questions multiple times, discussed recommendation to follow up with
outpatient services, significant other agreeable. CM will continue to follow for all discharge planning needs.
Plan; home with [facility], friend to provide transport home.
--- NOTE | 2024-10-07 13:39 | VNURNOTE ---
Late entry: Home Health Liaison met with patient at bedside to discuss [facility] nurse/therapy, visits, schedule and homebound status. 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 DC instructions reviewed, no driving
restrictions noted. TULIO Swartz notified. Pt to be provided outpt PT Rx. Would not qualify for [facility]N d/t not being homebound.
== END 2024-10-07 13:22 | disposition home health service (06) ==
LOC: 4 WEST ACU 14:42
PROVIDERS: ADMITTING PHYSICIAN Student in an Organized Health Care Education/Training Program; ATTENDING PHYSICIAN Hospitalist; CONSULT PHYSICIAN Psychiatry & Neurology Clinical Neurophysiology; EMERGENCY PHYSICIAN Emergency Medicine; FAMILY PHYSICIAN Family Medicine
DX: R42 Dizziness and giddiness (principal); I10 Essential (primary) hypertension; N40.0 Benign prostatic hyperplasia without lower urinary tract symptoms; J44.9 Chronic obstructive pulmonary disease, unspecified; G31.9 Degenerative disease of nervous system, unspecified; G45.0 Vertebro-basilar artery syndrome; K22.70 Barrett's esophagus without dysplasia; I49.1 Atrial premature depolarization; I44.7 Left bundle-branch block, unspecified; K21.9 Gastro-esophageal reflux disease without esophagitis; Z87.19 Personal history of other diseases of the digestive system; Z90.49 Acquired absence of other specified parts of digestive tract; Z87.891 Personal history of nicotine dependence; Z86.73 Personal history of transient ischemic attack (TIA), and cerebral infarction without residual deficits; Z79.01 Long term (current) use of anticoagulants; Z79.51 Long term (current) use of inhaled steroids; Z79.899 Other long term (current) drug therapy; Z11.52 Encounter for screening for COVID-19
CPT/HCPCS: 70450; 71046; 80048; 80061; 83036; 83735; 85025; 85027; 85610; 85730; 87502; 87811; 93005; 94640; 97116; 97163; 97167; 97535; 99285

== ENCOUNTER → 2024-10-17 13:24 | Outpatient (REF) | payer OTHER, SELFPAY | LOC: MRI 3T 13:24 | PROVIDERS: ATTENDING PHYSICIAN Internal Medicine Gastroenterology; FAMILY PHYSICIAN Family Medicine | DX: K86.2 Cyst of pancreas (principal) | CPT/HCPCS: 74183; A9575 ==

== ENCOUNTER 2025-05-20 17:59 | Emergency (ER) | payer OTHER, SELFPAY ==
[2025-05-20 18:01] VITALS: BP 131/79
[2025-05-20 18:14] VITALS: BMI 28.3
[2025-05-20 18:15] VITALS: BP 144/78
[2025-05-20] MEDS: KETAMINE 52.6 MG IV (18:20)
[2025-05-20 18:21] VITALS: BP 137/72
[2025-05-20 18:25] LABS: Hematocrit 45.0 % (39.0-52.0); Hemoglobin 15.3 g/dL (13.0-18.0); Mean Corp Hgb Conc. 34.0 g/dL (33.0-37.0); Mean Corpuscular Volume 84.0 fL (80.0-94.0); Nucleated Red Blood Cells % 0 % (-); Platelet Count 268 10^3/uL (130-400); Red Cell Dist. Width 14.2 % (11.5-14.5)
[2025-05-20] MEDS: SUBLIMAZE 50 MCG IV (18:28)
[2025-05-20 18:30] VITALS: BP 146/68
[2025-05-20 18:35] LABS: INR 2.50; PT 27.0 Sec (11.4-14.6)
[2025-05-20 18:37] LABS: APTT 37.8 Sec (23.4-35.0)
[2025-05-20 18:42] LABS: ALT (SGPT) 30 U/L (0-50); AST (SGOT) 34 U/L (17-59); Albumin 4.9 g/dl (3.5-5.0); Alkaline Phosphatase 118 U/L (38-126); Blood Urea Nitrogen 19 mg/dl (9-20); Calcium 9.5 mg/dl (8.4-10.2); Carbon Dioxide 26 mmol/L (22-30); Chloride 102 mmol/L (98-107); Estimated Creatinine Clearance 54 ml/min; Glucose 181 mg/dl (70-99); Potassium 3.7 mmol/L (3.5-5.1); Sodium 138 mmol/L (135-145); Total Protein 8.3 g/dl (6.3-8.2); eGFR > 60.00
[2025-05-20 18:45] VITALS: BP 148/74
[2025-05-20 19:00] VITALS: BP 176/74
--- NOTE | 2025-05-20 19:53 | ED.GENMED ---
History of Present Illness
General
Chief Complaint: Trauma Significant Mechanism
Time Seen by Provider: 05/20/25 18:04
History of Present Illness
History of Present Illness:
Patient is a 79-year-old male with history of COPD, prior stroke, hypertension presenting to the emergency department after a fall. History is unclear as patient is a poor historian but patient states that he fell landing on his right ribs. Per
EMS he did not hit his head or lose consciousness. He is on Coumadin. He is complaining of a hard time breathing. Denies any chest pain. He is unsure as to why he fell. He does state that he possibly felt dizzy. Otherwise history is very
difficult to obtain. Per medics he was hypoxic with diminished breath sounds on the right side. He was not hypotensive therefore needle decompression was not completed in the field.
Past History
Past History
ED Past Medical History: COPD, CVA, GERD, HTN, Psychiatric and Other (Diverticulitis, BPH, chronic diarrhea w/ incont)
ED Past Surgical History: Bowel resection, Cholecystectomy, Urological (Prostate) and Other (Hernia repair)
Social History
Tobacco: Former smoker
Alcohol: Occasional
Drug: None
Personal:
Living: with family
Family History
Family History: Negative Diabetes, Hypertension, Early CAD, Asthma or Cancer
Phy Exam
Physical Exam
Physical Exam:
GENERAL: Respiratory distress
HEENT: atraumatic, extraocular muscles intact, no signs of entrapment, dentition intact, no other obvious trauma
NECK: no midline tenderness, significant subcutaneous emphysema
BACK: no midline tenderness, no other obvious trauma
CHEST: Significant amount of subcutaneous emphysema, no obvious bruising
LUNGS: Diminished breath sounds to the right, clear breath sounds to the left
CARDIOVASCULAR: regular rhythm tachycardic rate
ABDOMEN: Subcutaneous emphysema traveling down to the abdomen though starkly stopped at midline, soft, non-tender, no masses, no other obvious trauma
PELVIS: stable, no obvious injury
EXTREMITIES: moving all extremities, distal pulses intact
NEUROLOGIC: GCS 15 awake, alert x 3, no focal deficits
Course
Orders/Labs/Results
Orders:
Orders
05/20/25 18:00
Portable Chest Xray [CR Chest Portable - 1 View] Stat
Comment:
Reason For Exam: fall SOB
Reason Study Needs to be Portable: Patient Unstable
05/20/25 18:05
Electrocardiogram (*1) Urgent
Reason for Study: Other
Other Reason for Exam: trauma
Cardiac Monitoring- Treatment ONCE
EKG- Treatment ONCE
Urinalysis Reflex To Culture Urgent
Urine Drug Abuse Screen Urgent
05/20/25 18:08
Ketamine 26 mg 0.9% Sodium Chloride 50 ml [Nss] 50 ml IV NOW
05/20/25 18:16
Type+Screen Urgent
Alcohol Urgent
Complete Blood Count/With Diff Urgent
Comprehensive Metabolic Panel Urgent
05/20/25 18:19
PTT Urgent
Prothrombin Time Urgent
05/20/25 18:25
Fentanyl Citrate/Pf [Sublimaze] 100 mcg .ROUTE .STK-MED ONE
05/20/25 18:27
Fentanyl Citrate/Pf [Sublimaze] 50 mcg IV NOW STA
05/20/25 18:28
Portable Chest Xray [CR Chest Portable - 1 View] Stat
Comment:
Reason For Exam: post CT insertion
Reason Study Needs to be Portable: Patient Unstable
05/20/25 18:48
CT Cervical Spine W/o Iv Contr Urgent
Comment:
Reason For Exam: fall
Cardiac Monitoring- Treatment ONCE
05/20/25 18:49
CT Chest/abd/pel W Iv Cont Urgent
Reason For Exam: fall
CT Head W/o Iv Contrast Urgent
Comment:
Reason For Exam: fall
Abnormal Lab Results
05/20/25 05/20/25
18:16 18:19
WBC 18.0 H 10^3/uL
(4.8-10.8)
MPV 11.3 H fL
(7.4-10.4)
Abs Immat Gran (auto) 0.1 H 10^3/uL
(0-0.05)
Absolute Neuts (auto) 11.7 H 10^3/uL
(1.4-6.5)
Absolute Lymphs (auto) 4.5 H 10^3/uL
(1.2-3.4)
Absolute Monos (auto) 1.5 H 10^3/uL
(0.1-0.6)
Immature Gran % 0.7 H %
(0-0.5)
PT 27.0 H Sec
(11.4-14.6)
APTT 37.8 H Sec
(23.4-35.0)
Glucose 181 H mg/dl
(70-99)
Total Bilirubin 2.2 H mg/dl
(0.2-1.3)
Total Protein 8.3 H g/dl
(6.3-8.2)
05/20/25 18:16
05/20/25 18:16
Vital Signs
Initial and Last Documented VS:
Initial Vital Signs
Temp Pulse Resp BP Pulse Ox
97.8 F 103 32 131/79 97
05/20/25 18:01 05/20/25 18:01 05/20/25 18:01 05/20/25 18:01 05/20/25 18:01
Last Documented Vital Signs
Temp Pulse Resp BP Pulse Ox
97.8 F 114 28 176/74 95
05/20/25 18:01 05/20/25 19:00 05/20/25 19:00 05/20/25 19:00 05/20/25 19:53
Procedures
Chest Tube
Indication for procedure:: Pneumothorax
Procedure completed by: amadou
Consent form signed: No
If no, reason: Emergency procedure
Anesthesia: 1% Lidocaine
Chest tube placed to: right side
Size of chest tube (cm): 28
Preparation: cleaned with Betadine
Chest tube position: position confirmed on CXR
Chest tube sutured to skin?: Yes
Chest tube complications: none
MDM/Problems Addressed
Differential Diagnosis Includes:
Patient is a 79-year-old male with history of COPD presenting to the emergency department after a fall. On arrival patient on nasal cannula though in significant respiratory distress. Patient transferred over to [facility] with appropriate
saturations. On exam patient with significant subcutaneous emphysema as well as diminished breath sounds to the right side. Blood pressure was normal so needle decompression was not attempted. Chest x-ray was completed which did show a
pneumothorax though difficult given significant amount of subcutaneous emphysema. There were multiple rib fractures as well. Attempted to complete a E-FAST exam though difficult given the amount of subcutaneous emphysema. I could visualize the
left upper quadrant which did not show any free fluid. Decision was then made to place a chest tube. Verbal consent obtained by patient. Ketamine as well as fentanyl given. Please see procedure note above. Chest x-ray was obtained afterwards to
which did show appropriate position. There was a doran of air as well as minimal blood. Patient tolerated procedure well. Afterwards patient did go over to CT scan as a trauma alert. I did discuss with [facility] for transfer. Patient was
accepted by Dr. Whitaker. He will be a trauma alert on arrival. Initially plan was to have patient be transferred via helicopter given nonrebreather. However helicopter team unavailable. On reassessment patient was slowly being weaned off
nonrebreather so decision was made for ground transport.
CT scan of the head per my interpretation with no obvious hemorrhage. CT C-spine negative. CT scan of the chest abdomen pelvis consistent with displaced lateral posterior lateral right 7th, 8th and 9th rib fractures as well as associated
posterior middle nondisplaced fractures. There is a moderate anterior right pneumothorax. The chest tube is extending posteriorly in the mid to upper lung zone.
I did reevaluate patient who does state that his breathing is better. There was some difficulty with the Pleur-evac not suctioning intermittently. We did replace a Pleur-evac with appropriate suction. He did have 100 mL of blood drained. There
is no air leak though there was some issue with blood pooling at the end of the chest tube. This certainly could be secondary to placement of the chest tube. I did consider repositioning my chest tube however patient clinically feels better and
vitals have been stable and during this time transport team arrived. There is still a anterior pneumothorax which could also be secondary to positioning of the chest tube posteriorly. Given the patient has been hemodynamically stable with
improvement in clinical status decision was made not to delay transport any further. Transport team as well as nurse at accepting facility notified of the chest tube pooling.
*Pulse Oximetry
SaO2: 95
Oxygen Mode of Delivery: Simple mask
Patient hypoxic: yes
*Critical Care Note
Total Time (30-74mins, 75-104mins- exclusive of procedures): 128
comment:
Critical care statement: A total of 128 minutes of critical care time was provided for this patient. This includes management of unstable vital signs, evaluation of the patient at bedside, reviewing the patient's pertinent medical records, ordering
and reviewing studies, arranging urgent treatment with development of a management plan, evaluating patient's response to treatment, frequent reassessment, and discussion with consultants. This time was separate from time utilized to perform the
aforementioned documented procedures.
ED Attending Note
-
Portions of this chart may have been created with voice recognition software.� Occasional wrong word or��sound alike� substitutions may have occurred due to the inherent limitations of voice recognition software.
Discharge Plan
Departure
Patient Disposition: Acute Care Hospital
Date of Disposition: 05/20/25
Time of Disposition: 19:07
Discharge Problem:
Trauma, Pneumothorax, Fracture, ribs
Prescriptions:
No Action
warfarin [Jantoven] 5 MG tablet
5 mg PO SUMOWEFR
cholecalciferol (vitamin D3) [Vitamin D3] 2,000 UNIT capsule
2,000 unit PO DAILY
finasteride 5 MG tablet
5 mg PO DAILY
albuterol sulfate 1 PUFF HFA aerosol inhaler
2 puff inhalation R Q4HPRN PRN (Reason: shortness of breath or wheeze) Qty: 1 0RF
colestipol [Colestid] 1 GM tablet
1 gm PO BID Qty: 30 0RF
warfarin 5 mg Tablet
2.5 mg PO TUTHSA
atorvastatin [Lipitor] 80 mg Tablet
80 mg PO DAILY
acetaminophen [Tylenol] 325 mg Tablet
650 mg PO HS
loperamide 2 mg Capsule
4 mg PO HS
pantoprazole [Protonix] 20 mg Tablet,Delayed Release (Dr/Ec)
20 mg PO DAILY
metoprolol succinate [Toprol XL] 25 mg Tablet Extended Release 24 Hr
25 mg PO DAILY
calcitriol 0.25 mcg Capsule
0.25 mcg PO DAILY
Trelegy Ellipta 200-62.5-25 mcg Blister With Device
1 inh INHALATION R DAILY
lisinopril 20 MG tablet
40 mg PO DAILY
Referrals:
Humberto Avila MD [Family Provider, Family Practice]
Hospital Transfer
Other hospital: [facility]
I certify that the patient requires transfer: Yes
Discussed case with accepting physician: [facility]
Reason for transfer: higher level of care and specialties available
Interventions
Interventions:
*Risk Screen - Suicide Last Done: 05/20/25 18:33
*General Assessment Last Done: 05/20/25 18:30
*Neglect/Abuse Screening Last Done: 05/20/25 18:30
*ED- Fall Risk Assessment Last Done: 05/20/25 18:30
*ED COVID-19 Vaccine History Last Done: 05/20/25 18:30
*ED Influenza Vaccine History Last Done: 05/20/25 18:30
*Nursing Disposition Last Done: 05/20/25 20:28
Discharge Date and Time
Print Language: MACEDONIAN
== END 2025-05-20 20:28 | disposition short-term general hospital (02) ==
LOC: EMR 17:59
PROVIDERS: Emergency Medicine; EMERGENCY PHYSICIAN Student in an Organized Health Care Education/Training Program; FAMILY PHYSICIAN Family Medicine
DX: S27.0XXA Traumatic pneumothorax, initial encounter (principal); S22.41XA Multiple fractures of ribs, right side, initial encounter for closed fracture; T79.7XXA Traumatic subcutaneous emphysema, initial encounter; W19.XXXA Unspecified fall, initial encounter; J44.9 Chronic obstructive pulmonary disease, unspecified; R09.02 Hypoxemia; I10 Essential (primary) hypertension; Z86.73 Personal history of transient ischemic attack (TIA), and cerebral infarction without residual deficits; Z79.01 Long term (current) use of anticoagulants; Z87.891 Personal history of nicotine dependence; N40.0 Benign prostatic hyperplasia without lower urinary tract symptoms
CPT/HCPCS: 32556; 96374; 99291; 99292; 70450; 71045; 71260; 72125; 74177; 80053; 82077; 85025; 85610; 85730; 86850; 86900; 86901; 99283; Q9967